=== PATIENT | male | born 1995 | race Caucasian/White ===

== ENCOUNTER 2021-08-11 16:24 | Emergency (ER) | payer SELFPAY ==
[~2021-08-11] VITALS: Ht 182.9 cm; Wt 113.4 kg
[2021-08-11 17:05] VITALS: BP 133/86
== END 2021-08-11 19:56 | disposition left against medical advice (07) ==
LOC: ER 16:24
DX: K08.89 Other specified disorders of teeth and supporting structures (principal); Z53.21 Procedure and treatment not carried out due to patient leaving prior to being seen by health care provider